=== PATIENT | male | born 1975 | race American Indian/Alaskan Native ===

== ENCOUNTER 2016-08-21 20:16 | Emergency (ER) | payer SELFPAY ==
[2016-08-22] MEDS ORDERED: TORADOL IM ONE (00:52)
[2016-08-22] MEDS ORDERED: TORADOL ONE (00:53)
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
[2016-08-22 01:49] VITALS: BP 124/85
== END 2016-08-22 01:58 | disposition home or self-care (01) ==
LOC: ED 20:16
DX: M54.5 Low back pain (principal); M25.561 Pain in right knee; F17.200 Nicotine dependence, unspecified, uncomplicated; V49.9XXA Car occupant (driver) (passenger) injured in unspecified traffic accident, initial encounter; Y93.89 Activity, other specified; Y99.9 Unspecified external cause status; Y92.410 Unspecified street and highway as the place of occurrence of the external cause
CPT/HCPCS: 96372; 99282; J1885